=== PATIENT | male | born 1960 ===

== ENCOUNTER 2017-09-24 12:46 | Emergency (ER) | payer MEDICARE, OTHER ==
[2017-09-24 12:46] VITALS: BMI 27.6
[2017-09-24 13:08] VITALS: RESP 20; TEMP 98.1; O2SAT 97
--- NOTE | 2017-09-24 13:09 | C.PDOC ---
Time Seen by Provider: 09/24/17 13:06 Chief Complaint (Nursing): Substance Abuse Past Medical History Vital Signs: Last Vital Signs Temp 98.1 F 09/24/17 13:04 Pulse 116 H 09/24/17 13:04 Resp 20 09/24/17 13:04 BP 137/92 H 09/24/17 13:04 Pulse Ox 97 09/24/17 13:04 - Medical History PMH: Anxiety (ABOUT VISION), Gastritis Family History: States: Unknown Family Hx - Social History Hx Alcohol Use: Yes Hx Substance Use: No - Immunization History Hx Tetanus Toxoid Vaccination: No Hx Influenza Vaccination: No Hx Pneumococcal Vaccination: No ED Course And Treatment O2 Sat by Pulse Oximetry: 97 Disposition - Disposition Forms: [facility] (Niuean)
--- NOTE | 2017-09-24 13:18 | C.PDOC ---
History Of Present Illness 57-year-old male, brought to the emergency department by ambulance for apparent intoxication. Patient was found in [place] between two cars, and brought to [facility] because as per EMS "he lives down the block." No SI/HI. Time Seen by Provider: 09/24/17 13:06 Chief Complaint (Nursing): Substance Abuse History Per: Patient, EMS History/Exam Limitations: intoxication Past Medical History Reviewed: Historical Data, Nursing Documentation, Vital Signs Vital Signs: Last Vital Signs Temp 98.1 F 09/24/17 13:04 Pulse 116 H 09/24/17 13:04 Resp 20 09/24/17 13:04 BP 137/92 H 09/24/17 13:04 Pulse Ox 97 09/24/17 13:24 - Medical History PMH: Anxiety (ABOUT VISION), Gastritis Family History: States: No Known Family Hx - Social History Hx Alcohol Use: Yes Hx Substance Use: No - Immunization History Hx Tetanus Toxoid Vaccination: No Hx Influenza Vaccination: No Hx Pneumococcal Vaccination: No Review Of Systems Cardiovascular: Negative for: Chest Pain Respiratory: Negative for: Shortness of Breath Gastrointestinal: Negative for: Vomiting Neurological: Negative for: Weakness, Numbness Psych: Negative for: Depression, Suicidal ideation Physical Exam - Physical Exam Appears: Non-toxic, No Acute Distress, Other (etoh on breath. ) Skin: Normal Color, Warm, Dry, No Diaphoretic, No Rash, No Jaundice Head: Normacephalic Nose: Normal Oral Mucosa: Moist Lips: Normal Appearing Neck: Normal ROM Cardiovascular: Rhythm Regular, No Murmur Respiratory: Normal Breath Sounds, No Accessory Muscle Use Extremity: Normal ROM, Capillary Refill (<2 seconds), No Deformity, No Swelling Neurological/Psych: Other (No focal deficit) ED Course And Treatment O2 Sat by Pulse Oximetry: 97 (RA) Pulse Ox Interpretation: Normal Disposition Counseled Patient/Family Regarding: Diagnosis, Need For Followup - Disposition Referrals: [facility] [Outside] Disposition: HOME/ ROUTINE Disposition Time: 13:45 Condition: STABLE Additional Instructions: FOLLOW UP WITH YOUR DOCTOR IN 1-2 DAYS RETURN TO ER IF SYMPTOMS WORSEN Instructions: Alcohol Abuse and Alcoholism (DC) Forms: [facility] (Nepali), General Discharge Instructions Print Language: RWANDAN - Clinical Impression Clinical Impression: Alcohol abuse - Scribe Statement The provider has reviewed the documentation as recorded by the Scribe (Elisha Paredes) All medical record entries made by the Dennis were at my direction and personally dictated by me. I have reviewed the chart and agree that the record accurately reflects my personal performance of the history, physical exam, medical decision making, and the department course for this patient. I have also personally directed, reviewed, and agree with the discharge instructions and disposition.
[2017-09-24 13:50] VITALS: BP 141/96; PULSE 106
== END 2017-09-24 14:49 | disposition home or self-care (01) ==
LOC: C.ER 12:46
DX: F10.10 Alcohol abuse, uncomplicated (principal); Y90.9 Presence of alcohol in blood, level not specified

== ENCOUNTER 2018-04-29 19:17 | Emergency (ER) | payer MEDICARE ==
[2018-04-29 19:17] VITALS: BMI 27.6
[2018-04-29 19:45] VITALS: BP 125/80; PULSE 107; RESP 18; TEMP 97.8; O2SAT 98
--- NOTE | 2018-04-29 19:47 | C.PDOC ---
History Of Present Illness 58-year-old male is brought to the ED for evaluation of alcohol intoxication. Patient admits to drinking earlier today. Patient presents with a bandage on his right elbow but is refusing to provide additional information about the injury or physical examination. Patient denies any complaints at this time. Time Seen by Provider: 04/29/18 19:40 Chief Complaint (Nursing): Substance Abuse History Per: Patient History/Exam Limitations: no limitations Current Symptoms Are (Timing): Still Present Additional History Per: Patient Past Medical History Reviewed: Historical Data, Nursing Documentation, Vital Signs Vital Signs: Last Vital Signs Temp 97.8 F 04/29/18 19:21 Pulse 107 H 04/29/18 19:21 Resp 18 04/29/18 19:21 BP 125/80 04/29/18 19:21 Pulse Ox 98 04/29/18 19:21 - Medical History PMH: Anxiety (ABOUT VISION), Gastritis Family History: States: Unknown Family Hx - Social History Hx Alcohol Use: Yes Hx Substance Use: No - Immunization History Hx Tetanus Toxoid Vaccination: No Hx Influenza Vaccination: No Hx Pneumococcal Vaccination: No Review Of Systems Psych: Positive for: Other (EtOH intoxication ) Physical Exam - Physical Exam Skin: Other (bandage to elbow ) Head: Atraumatic, Normacephalic Eye(s): bilateral: Normal Inspection Oral Mucosa: Moist Neck: Supple Chest: Symmetrical, No Deformity, No Tenderness Cardiovascular: Rhythm Regular, No Murmur Respiratory: Normal Breath Sounds, No Rales, No Rhonchi, No Wheezing Extremity: Normal ROM, Capillary Refill (less than 2 seconds ) Neurological/Psych: Other (uncooperative, clear speech, steady gait, no acute intoxication) ED Course And Treatment O2 Sat by Pulse Oximetry: 98 (on RA) Pulse Ox Interpretation: Normal Disposition Counseled Patient/Family Regarding: Diagnosis, Need For Followup - Disposition Referrals: YOUR,PMD [Other] Disposition: HOME/ ROUTINE Disposition Time: 19:46 Condition: GOOD Additional Instructions: YOU HAVE REFUSED EVALUATION OF YOUR INJURY. FOLLOW UP WITH YOUR PMD Instructions: Alcohol Abuse and Alcoholism (DC) Forms: [employer] (Irish) - Clinical Impression Clinical Impression: Alcohol use, Elbow injury - Scribe Statement The provider has reviewed the documentation as recorded by the Scribe (Heather Lunsford) Provider Attestation: All medical record entries made by the Scribe were at my direction and p ersonally dictated by me. I have reviewed the chart and agree that the record accurately reflects my personal performance of the history, physical exam, medical decision making, and the department course for this patient. I have also personally directed, reviewed, and agree with the discharge instructions and disposition.
== END 2018-04-29 19:54 | disposition home or self-care (01) ==
LOC: C.ER 19:17
DX: F10.10 Alcohol abuse, uncomplicated (principal); S59.901A Unspecified injury of right elbow, initial encounter; X58.XXXA Exposure to other specified factors, initial encounter; Y92.9 Unspecified place or not applicable

== ENCOUNTER 2018-08-04 19:52 | Inpatient (IN) | payer MEDICARE ==
[2018-08-04 19:52] VITALS: BMI 27.6
--- NOTE | 2018-08-04 20:31 | C.PDOC ---
History Of Present Illness 58 year old male presents to the ED as a prescreen for heroin and alcohol detox. Patient states last use was at 0200. Patient is concerned for withdrawal symptoms which will occur "soon" but currently " not bad." PRESCREEN FOR DETOX HEROIN AND ETOH, LAST USE 0200. PS CONCERNED FOR WITHDRAWAL SX "SOON" BUT CURRENTLY "NOT BAD" EXAM PSYCH CALM COOPERATIVE NO ACUTE INTOX REMAINDER NEG Time Seen by Provider: 08/04/18 20:30 Chief Complaint (Nursing): Substance Abuse History Per: Patient History/Exam Limitations: no limitations Onset/Duration Of Symptoms: Hrs Current Symptoms Are (Timing): Still Present Modifying Factor(s): Alcohol, Other (heroin) Additional History Per: Patient Past Medical History Reviewed: Historical Data, Nursing Documentation, Vital Signs - Medical History PMH: Anxiety (ABOUT VISION), Gastritis Surgical History: No Surg Hx Family History: States: Unknown Family Hx - Social History Hx Alcohol Use: Yes Hx Substance Use: No - Immunization History Hx Tetanus Toxoid Vaccination: No Hx Influenza Vaccination: No Hx Pneumococcal Vaccination: No Review Of Systems Psych: Positive for: Other (heroin and alcohol detox) Physical Exam - Physical Exam Appears: Non-toxic, No Acute Distress Skin: Normal Color, Warm, Dry Head: Atraumatic, Normacephalic Eye(s): bilateral: Normal Inspection Oral Mucosa: Moist Neck: Supple Chest: Symmetrical, No Deformity, No Tenderness Cardiovascular: Rhythm Regular, No Murmur Respiratory: Normal Breath Sounds, No Rales, No Rhonchi, No Wheezing Extremity: Normal ROM, Capillary Refill (less than 2 seconds ) Neurological/Psych: Other (calm, cooperative, no acute intoxication ) ED Course And Treatment - Laboratory Results Result Diagrams: 08/04/18 20:47 08/04/18 20:47 O2 Sat by Pulse Oximetry: 96 (on RA) Pulse Ox Interpretation: Normal Progress Note: Bloodwork, urinalysis ordered and reviewed. Catapres PO, Libriun PO, Motrin PO and Zofran PO given. Reevaluation Time: 21:22 Reassessment Condition: Unchanged (MED CLEAR FOR DETOX. CRISIS NOTIFIED) Disposition Counseled Patient/Family Regarding: Studies Performed, Diagnosis - Disposition Disposition: HOSPITALIZED Disposition Time: 22:48 Condition: STABLE - POA Present On Arrival: None - Clinical Impression Clinical Impression: Alcohol abuse, Opiate abuse, continuous - Scribe Statement The provider has reviewed the documentation as recorded by the Scribe (Heather Lunsford) Provider Attestation: All medical record entries made by the Scribe were at my direction and personally dictated by me. I have reviewed the chart and agree that the record accurately reflects my personal performance of the history, physical exam, medical decision making, and the department course for this patient. I have also personally directed, reviewed, and agree with the discharge instructions and disposition.
[2018-08-04 20:53] LABS: EOS # 0.1 K/uL (0.0-0.7); EOS % 1.7 % (0.0-4.0); HEMOGLOBIN 13.2 g/dL (12.0-18.0); LYMPH # 0.9 K/uL (1.0-4.3); LYMPH % 25.5 % (20.0-40.0); MEAN CELL VOLUME 94.3 fL (80.0-94.0); MEAN CORPUSCULAR HEMOGLOBIN 32.5 pg (27.0-31.0); MEAN CORPUSCULAR HGB CONC 34.4 g/dL (33.0-37.0); MONO # 0.3 K/uL (0.0-0.8); MONO % 9.7 % (0.0-10.0); NEUT # 2.2 K/uL (1.8-7.0); NEUT % 62.1 % (50.0-75.0); NRBC % 0.1 % (0.0-2.0); RBC 4.07 Mil/uL (4.40-5.90); RED CELL DISTRIBUTION WIDTH 12.6 % (11.5-14.5); WHITE BLOOD COUNT 3.5 K/uL (4.8-10.8)
[2018-08-04 20:56] LABS: URINE BILIRUBIN NEGATIVE (NEGATIVE); URINE BLOOD NEGATIVE (NEGATIVE); URINE CLARITY Clear (Clear); URINE COLOR Yellow (YELLOW); URINE GLUCOSE (UA) NORMAL (Normal); URINE LEUKOCYTE ESTERASE NEG Leu/uL (Negative); URINE PROTEIN NEGATIVE (NEGATIVE)
[2018-08-04 21:08] LABS: ALB/GLOB RATIO 1.2 (1.0-2.1); ALBUMIN 4.2 g/dL (3.5-5.0); ALT/SGPT 49 U/L (21-72); AST/SGOT 63 U/L (17-59); BLOOD UREA NITROGEN 9 mg/dL (9-20); GFR NON-AFRICAN AMERICAN > 60
[2018-08-04 21:13] LABS: BARBITURATES, UR NEGATIVE (NEGATIVE); BENZODIAZEPINES, UR NEGATIVE (NEGATIVE); PHENCYCLIDINE, UR NEGATIVE (NEGATIVE)
[2018-08-04 21:21] LABS: OPIATES, UR POSITIVE (NEGATIVE)
--- NOTE | 2018-08-05 01:47 | PCM.BM ---
<DavidHeide Kevin - Last Filed: 08/05/18 01:44> Treatment Plan Problems - Problems identified on initial assessmt Defensive Coping Date Initiated: 08/04/18 Time Initiated: 23:45 Assessment reference: NA Status: Active Altered Health Maintenance Date Initiated: 08/04/18 Time Initiated: 23:45 Assessment reference: NA Status: Active Knowledge Deficit: Alcohol Date Initiated: 08/04/18 Time Initiated: 23:45 Assessment reference: NA Status: Active <Stuart Santana - Last Filed: 08/08/18 15:12> - Diagnosis (1) Alcohol abuse Status: Acute Interventions: 08/08/18 15:12 * Assess 7x/week regarding severity of withdrawal * Educate regarding risks, benefits, side effects and alternatives of me dications * Use Motivational Interviewing for abstinence * Use CBT for relapse prevention * Medication management for withdrawal symptoms * Encourage medication assisted treatment * (2) Opiate abuse, continuous Status: Acute Interventions: 08/08/18 15:12 * Assess 7x/week regarding severity of withdrawal * Educate regarding risks, benefits, side effects and alternatives of medications * Use Motivational Interviewing for abstinence * Use CBT for relapse prevention * Medication management for withdrawal symptoms * Encourage medication assisted treatment *
[2018-08-05] MEDS: Multiple Vitamins Tab PO SCH (10:15)
--- NOTE | 2018-08-05 14:11 | PCM.PSYCH ---
Initial Psychiatric Evaluation - Initial Psychiatric Evaluation Type of Admission: Voluntary Legal Status: Capacity Chief Complaint (in patient's own words): "Detox, I need to stop" History of Present Illness and Precipitating Events: 58 yo male, legally blind 2/2 Macular Degeneration on disability, single, living alone in [place], presenting for detox from Heroin. Pt uses 20 bags of heroin, intranasally, daily for the past two months; his last use was 08/04. Pt has a hx of abusing opiods since age 27. Pt reports being clean for nine years before relapsing in late 2018, due to being "extremely bored." Nine years was his longest period of sobriety and denies being on any maintenance medication or attending NA meetings. The last time he attended a rehab/detox program was in 1991. Pt admits to drinking 10 of 24 ounce cans, of beer daily for the past two months; his last use was 08/04. Pt reports drinking alcohol since age 9. Pt states he was sober for nine years as well before relapsing in 2018. Pt is willing to detox off this as well. Pt denies any tobacco or marijuana use. Pt denies any current SI/HI. PMHx: Macular degeneration- legally blind Pt reports that his disability has left him unable to do many of the activities he was doing previously such as athletics, which is why he continues to feel bored and inactive, contributing to his drug and alcohol abuse. Past psychiatric Hx: Depression Denies f/u or medication compliance Fam Hx: Father- alcoholic Brother- recovering alcoholic Current Medications: Active Medications Generic Name Dose Route Start Last Admin Trade Name Rickq PRN Reason Stop Dose Admin Chlordiazepoxide 25 mg 08/05/18 08:59 Librium PO Q4H PRN Alcohol Withdrawal Chlordiazepoxide 25 mg 08/05/18 10:00 08/05/18 13:56 Librium PO 08/10/18 09:59 25 mg Q4H GEORGIE Administration Taper Clonidine HCl 0.1 mg 08/05/18 08:59 Catapres PO Q4H PRN Symptoms of alcohol withdrawl Folic Acid 1 mg 08/05/18 10:00 08/05/18 10:15 Folic Acid PO 1 mg DAILY GEORGIE Administration Multivitamins 1 tab 08/05/18 10:00 08/05/18 10:15 Hexavitamin PO 1 tab DAILY GEORGIE Administration Thiamine HCl 100 mg 08/05/18 10:00 08/05/18 10:19 Vitamin B1 Tab PO Not Given DAILY GEORGIE Trazodone HCl 50 mg 08/05/18 22:00 Desyrel PO HS PRN Insomnia Past Psychiatric History - Past Psychiatric History Previous Treatment History: Intensive Outpatient Pertinent Medical Hx (Current Medical&Sleep Prob, Allergies): Allergies Allergy/AdvReac Type Severity Reaction Status Date / Time No Known Allergies Allergy Verified 04/29/18 19:33 No Known Home Med 12/04/15 Review of Systems - Neurological Neurological: UNREMARKABLE - Psychiatric Psychiatric: Abnormal Sleep Pattern, Anxiety, Depression, Difficulty Concentrating. absent: Homicidal Ideation, Suicidal Ideation Mental Status Examination - Personal Presentation Personal Presentation: Looks stated age - Affect Affect: Constricted - Motor Activity Motor Activity: Calm - Reliability in Providing Information Reliability in Providing Information: Good - Speech Speech: Organized - Mood Mood: Depressed, Anxious - Formal Thought Process Formal Thought Process: No Impairment - Cognitive Functions Orientation: Person, Place, Situation, Time Sensorium: Alert Attention/Concentration: Attentive Estimate of Intelligence: Average Judgement: Intact, as evidence by: Insight regarding need for hospitalization Memory: Recent intact, as evidence by: Ability to recall events of the day, Remote intact, as evidenced by: Abilit to recall sig. life events - Risk Risk: Withdrawal, Diminished functioning - Strength & Assets Inventory Strength & Assets Inventory: Cooperative - Limitations Limitations: Living alone, Other DSM 5 DX - DSM 5 DSM 5 Diagnosis: Opiod use disorder, severe Opiod withdrawal Alcohol use disorder, severe Alcohol withdrawal Major depression - Recommended/Plan of Treatment Treatment Recommendations and Plan of Treatment: Taper with methadone and Librium for Opiods and Alcohol, respectively Gabapentin for augmentation if needed Start on Folic acid, multivitamins, Thiamine As needed medications Clonidine, Motrin, Zofran, Trazadone All risks, benefits and alternatives of the meds discussed, and the pt agreed and understood. Attend groups and activities Supportive therapy and psychoeducation [place] for abstinence CBT for relapse prevention Encourage MAT Refer to rehab or IOP, and self-help groups Teach healthy lifestyle methods, i.e. diet, exercise, meditation Smoking cessation with PR Nicotine patch if needed 35 in Projected ELOS: 4-5 days
[2018-08-06] MEDS: Multiple Vitamins Tab PO SCH (09:13)
--- NOTE | 2018-08-06 10:21 | PCM.PYCHPN ---
Psychiatric Progress Note - Psychiatric Progress Note Patient seen today, length of contact: 17 min Patient Chief Complaint: "So so" Problems Identified/Issues Discussed: The pt is seen, chart reviewed, case discussed with staff. Pt reports that he had slept well for the first time in a while. Pt states he still wakes up in the middle of the night but is able to fall back asleep relatively quickly. Pt admits to nausea and vomiting x2 yesterday. The pt is compliant with medications and reports no side-effects. Symptoms are improving but needs more time to stabilize. Pt attends groups and activities. Support given, psycho-education provided. After care discussed. Medication Change: Yes (detox changes daily) Medical Record Reviewed: Yes Mental Status Examination - Cognitive Function Orientation: Person, Place, Situation, Time Memory: Intact Attention: Poor Concentration: Poor Association: WNL Fund of Knowledge: WNL - Mood Mood: Depressed, Anxious - Affect Affect: Constricted - Speech Speech: Appropriate - Formal Thought Process Formal Thought Process: No Impairment - Suicidal Ideation Suicidal Ideation: No - Homicidal Ideation Homicidal Ideation: No Goal/Treatment Plan - Goal/Treatment Plan Need for Continued Stay: Discharge may exacerbated symptoms, Severe functional impairment Progress Toward Problem(s) and Goals/Treatment Plan: Taper with methadone and Librium for Opiods and Alcohol, respectively Gabapentin for augmentation if needed Start on Folic acid, multivitamins, Thiamine As needed medications Clonidine, Motrin, Zofran, Trazadone All risks, benefits and alternatives of the meds discussed, and the pt agreed and understood. Attend groups and activities Supportive therapy and psychoeducation [place] for abstinence CBT for relapse prevention Encourage MAT Refer to rehab or IOP, and self-help groups Teach healthy lifestyle methods, i.e. diet, exercise, meditation Smoking cessation with [place] Nicotine patch if needed
[2018-08-07] MEDS: Multiple Vitamins Tab PO SCH (09:19)
--- NOTE | 2018-08-07 13:29 | PCM.PYCHPN ---
Psychiatric Progress Note - Psychiatric Progress Note Patient seen today, length of contact: 15 min Patient Chief Complaint: "I'm feeling tired, but my sleep is better" Problems Identified/Issues Discussed: The pt is seen, chart reviewed, case discussed with staff. Pt reports that he is still feeling tired, but his sleep has improved. Pt also reports that he is having some nausea and that recently he has been having difficulty keeping food down. Pt complains of GERD-like symptoms. Support and psychoeducation given, CBT and [place] used briefly No new symptoms reported, improving slowly and needs more time No SEs from medications, risks discussed. After care discussed Medication Change: Yes (detox changes daily) Medical Record Reviewed: Yes Mental Status Examination - Cognitive Function Orientation: Person, Place, Situation, Time Memory: Intact Attention: Poor Concentration: Poor Association: WNL Fund of Knowledge: WNL - Mood Mood: Depressed - Affect Affect: Constricted, Depressed - Speech Speech: Appropriate - Formal Thought Process Formal Thought Process: No Impairment - Suicidal Ideation Suicidal Ideation: No - Homicidal Ideation Homicidal Ideation: No Goal/Treatment Plan - Goal/Treatment Plan Need for Continued Stay: Discharge may exacerbated symptoms, Severe functional impairment Progress Toward Problem(s) and Goals/Treatment Plan: Taper with methadone and Librium for Opioids and Alcohol, respectively Gabapentin for augmentation Continue Folic acid, multivitamins, Thiamine As needed medications Clonidine, Zofran, Trazodone All risks, benefits and alternatives of the meds discussed, and the pt agreed and understood. Attend groups and activities Supportive therapy and psychoeducation [place] for abstinence CBT for relapse prevention Encourage MAT Refer to rehab or IOP, and self-help groups Teach healthy lifestyle methods, i.e. diet, exercise, meditation Smoking cessation with [place] Nicotine patch if needed Estimated Date of D/C: 08/09/18
--- NOTE | 2018-08-08 07:59 | PCM.PYCHPN ---
Psychiatric Progress Note - Psychiatric Progress Note Patient seen today, length of contact: 15 min Medication Change: Yes (detox changes daily) Medical Record Reviewed: Yes Mental Status Examination - Cognitive Function Orientation: Person, Place, Situation, Time Memory: Intact Attention: Poor Concentration: Poor Association: WNL Fund of Knowledge: WNL - Mood Mood: Depressed - Affect Affect: Constricted, Depressed - Speech Speech: Appropriate - Formal Thought Process Formal Thought Process: No Impairment - Suicidal Ideation Suicidal Ideation: No - Homicidal Ideation Homicidal Ideation: No Goal/Treatment Plan - Goal/Treatment Plan Need for Continued Stay: Discharge may exacerbated symptoms, Severe functional impairment
[2018-08-08] MEDS: Multiple Vitamins Tab PO SCH (10:28)
[2018-08-08 21:22] VITALS: RESP 18
[2018-08-09] MEDS: Multiple Vitamins Tab PO SCH (09:41)
[2018-08-09 10:50] VITALS: BP 109/77; PULSE 94; TEMP 98.7; O2SAT 98
--- NOTE | 2018-08-09 12:59 | PCM.PYCHDC ---
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 Pt uses 20 bags of heroin, intranasally, daily for the past two months; his last use was 08/04. Pt has a hx of abusing opiods since age 27. Pt reports being clean for nine years before relapsing in late 2018, due to being "extremely bored." Nine years was his longest period of sobriety and denies being on any maintena nce medication or attending NA meetings. The last time he attended a rehab/detox program was in 1991. Pt admits to drinking 10 of 24 ounce cans, of beer daily for the past two months; his last use was 08/04. Pt reports drinking alcohol since age 9. Pt states he was sober for nine years as well before relapsing in 2018. Pt is willing to detox off this as well. Pt denies any tobacco or marijuana use. Pt denies any current SI/HI. PMHx: Macular degeneration- legally blind Pt reports that his disability has left him unable to do many of the activities he was doing previously such as athletics, which is why he continues to feel bored and inactive, contributing to his drug and alcohol abuse. Past psychiatric Hx: Depression Denies f/u or medication compliance Fam Hx: Father- alcoholic Brother- recovering alcoholic Consultations:: List each consultation separately and include: 1. Reason for request. 2. Findings. 3. Follow-up Summary of Hospital Course include:: 1. Description of specific treatment plan utilized for patients during their course of treatmen. 2. Summarize the time- course for resolution of acute symptoms and/or regressed behaviors. 3. Describe issues identified and worked on during hospitalization. 4. Describe medication utilized. 5. Describe medical problems identified and treated. 6. Reassessment of suicide risk - Final Diagnosis (DSM 5) Condition upon Discharge: STABLE DSM 5: Opiod use disorder, severe Opiod withdrawal Alcohol use disorder, severe Alcohol withdrawal Major depression Disposition: HOME/ ROUTINE Prescriptions/Medication Reconciliation: RX: Folic Acid 1 mg PO DAILY #30 tab RX: Multivitamins [Hexavitamin] 1 tab PO DAILY #30 tab RX: Thiamine [Vitamin B1 Tab] 100 mg PO DAILY #30 tab RX: traZODone [Desyrel] 50 mg PO HS PRN #30 tab PRN Reason: Insomnia
== END 2018-08-09 13:44 | disposition home or self-care (01) | DRG 897 ==
LOC: C.ER 19:52 → C.7D 22:49
DX: F11.23 Opioid dependence with withdrawal (principal); F10.239 Alcohol dependence with withdrawal, unspecified; F32.9 Major depressive disorder, single episode, unspecified; H54.8 Legal blindness, as defined in USA; H35.30 Unspecified macular degeneration